=== PATIENT | male | born 1935 | race Two or more races ===

== ENCOUNTER 2017-01-26 11:18 | Emergency (ER) | payer MEDICARE, MEDICAID ==
[2017-01-26 12:27] VITALS: BP 144/78
== END 2017-01-26 12:37 | disposition home or self-care (01) ==
LOC: ER 11:18
DX: I10 Essential (primary) hypertension (principal); Z76.0 Encounter for issue of repeat prescription
CPT/HCPCS: 93005

== ENCOUNTER 2017-03-08 10:09 | Emergency (ER) | payer OTHER, MEDICAID ==
[2017-03-08 11:03] VITALS: BP 133/70
== END 2017-03-08 11:33 | disposition home or self-care (01) ==
LOC: ER 10:09
DX: S02.2XXA Fracture of nasal bones, initial encounter for closed fracture (principal); I10 Essential (primary) hypertension; W18.39XA Other fall on same level, initial encounter; Y93.89 Activity, other specified; Y92.89 Other specified places as the place of occurrence of the external cause; Y99.8 Other external cause status
CPT/HCPCS: 70160

== ENCOUNTER 2017-05-21 19:44 | Inpatient (IN) | payer OTHER, MEDICAID ==
[~2017-05-21] VITALS: Ht 162.6 cm; Wt 84.6 kg
[2017-05-21 21:29] LABS: Basophils # (auto) 0.1 uL; Basophils % (auto) 1.2 % (0.0-2.0); CONDITION Y; Eosinophils # (auto) 0.2 uL; Eosinophils % (auto) 3.5 % (0.0-7.0); Hematocrit 44.5 % (41.0-53.0); Lymphocytes # (auto) 1.7 uL; Lymphocytes % (auto) 26.1 % (10.0-50.0); Mean Corpuscular Hemoglobin 31.6 pg (28.0-32.0); Mean Corpuscular Hgb Conc. 33.8 g/dL (32.0-36.0); Mean Corpuscular Volume 93.7 fL (80.0-100.0); Mean Platelet Volume 8.6 fL (7.4-10.4); Monocytes # (auto) 0.6 uL; Monocytes % (auto) 9.7 % (0.0-12.0); Neutrophils # (auto) 3.9 uL; Neutrophils % (auto) 59.5 % (37.0-80.0); Platelet Count (auto) 223 10^3/uL (140-450); Red Cell Distribution Width 14.3 % (11.6-16.0); White Blood Cell 6.5 10^3/uL (4.4-10.8)
[2017-05-21 21:58] LABS: Albumin 3.7 g/dL (3.4-5.0); BUN/Creatinine Ratio 19.6; Calcium 8.8 mg/dL (8.5-10.1); Potassium 4.7 mmol/L (3.5-5.1)
[2017-05-21 22:01] LABS: Bilirubin, Total 0.5 mg/dL (0.2-1.0); Total Protein 7.8 g/dL (6.4-8.2)
[2017-05-21 23:48] LABS: Urine Bilirubin Negative (Negative); Urine Blood Negative /uL (Negative); Urine Color Yellow (Yellow); Urine Glucose Normal (Normal); Urine Ketone Negative (Negative); Urine Nitrite Negative (Negative); Urine RBC 1 /hpf (0 - 3); Urine Sperm PRESENT /hpf (None Seen); Urine Squamous Epithelial Cell FEW /hpf (<5); Urine Urobilinogen Normal (Negative); Urine pH 6.5 (5.0-8.0)
[2017-05-22] MEDS ORDERED: ACETAMINOPHEN 325 MG TAB PO PRN (07:00)
[2017-05-22] MEDS ORDERED: MORPHINE SULF INJ 2 MG/ML SYRINGE 1ML IV PRN (07:00)
[2017-05-22] MEDS ORDERED: ONDANSETRON HCL 4 MG/2 ML VIAL IV PRN (07:00)
[2017-05-22] MEDS ORDERED: HYDROcodone-ACET 5/325MG TAB PO PRN (07:00)
[2017-05-22] MEDS ORDERED: TEMAZEPAM 15 MG CAP PO PRN (07:00)
[2017-05-22] MEDS: SODIUM CHLORIDE 0.9% 1,000 ML IV SCH (07:30)
[2017-05-22] MEDS: metroNIDAZOLE 500MG/100ML 100 ML IV SCH ×3 (07:30→21:28)
[2017-05-22] MEDS ORDERED: PAR20T PO (08:38)
[2017-05-22] MEDS ORDERED: AML5T PO (08:38)
[2017-05-22] MEDS ORDERED: LOSA50TA6 PO (08:38)
[2017-05-22] MEDS: cefTRIAXone 1GM/50ML D5W 50 ML IV SCH (09:20)
[2017-05-22] MEDS: amLODIPine BESYLATE 5 MG TAB PO SCH (10:00)
[2017-05-22] MEDS: PANTOPRAZOLE 40 MG/10 ML VIAL IV SCH (10:00)
[2017-05-22 11:06] VITALS: BP 129/76
[2017-05-22 17:08] VITALS: BP 141/74
[2017-05-22 20:00] VITALS: BP 109/69
[2017-05-22 22:00] VITALS: BP 109/69
[2017-05-22] MEDS ORDERED: ATORVASTATIN 20 MG TAB PO SCH (22:00)
[2017-05-23] MEDS: SODIUM CHLORIDE 0.9% 1,000 ML IV SCH ×2 (01:12→16:16)
[2017-05-23 04:33] LABS: Basophils # (auto) 0 uL; Basophils % (auto) 0.8 % (0.0-2.0); CONDITION Y; Eosinophils # (auto) 0.2 uL; Eosinophils % (auto) 3.6 % (0.0-7.0); Hematocrit 41.9 % (41.0-53.0); Hemoglobin 14.1 g/dL (13.5-17.5); Lymphocytes # (auto) 1.2 uL; Lymphocytes % (auto) 22.9 % (10.0-50.0); Mean Corpuscular Hemoglobin 31.7 pg (28.0-32.0); Mean Corpuscular Hgb Conc. 33.7 g/dL (32.0-36.0); Mean Platelet Volume 9.2 fL (7.4-10.4); Monocytes # (auto) 0.5 uL; Monocytes % (auto) 10.3 % (0.0-12.0); Neutrophils # (auto) 3.1 uL; Neutrophils % (auto) 62.4 % (37.0-80.0); Platelet Count (auto) 203 10^3/uL (140-450); Red Cell Distribution Width 14.1 % (11.6-16.0)
[2017-05-23 04:54] LABS: Albumin 3.2 g/dL (3.4-5.0); BUN/Creatinine Ratio 12.2; Bilirubin, Total 0.9 mg/dL (0.2-1.0); Calcium 8.3 mg/dL (8.5-10.1); Potassium 3.8 mmol/L (3.5-5.1); Total Protein 6.8 g/dL (6.4-8.2)
[2017-05-23 05:00] VITALS: BP 124/68
[2017-05-23] MEDS: metroNIDAZOLE 500MG/100ML 100 ML IV SCH (05:19)
[2017-05-23 09:00] VITALS: BP 123/65
[2017-05-23] MEDS: PANTOPRAZOLE 40 MG/10 ML VIAL IV SCH (09:53)
[2017-05-23] MEDS: cefTRIAXone 1GM/50ML D5W 50 ML IV SCH (09:53)
[2017-05-23] MEDS: amLODIPine BESYLATE 5 MG TAB PO SCH (09:54)
[2017-05-23 12:30] VITALS: BP 107/54
[2017-05-23] MEDS ORDERED: DOCUSATE SOD 100 MG CAP PO PRN (15:15)
[2017-05-23] MEDS ORDERED: HYD25RS PR (15:40)
[2017-05-23 17:00] VITALS: BP 128/76
[2017-05-23 17:13] VITALS: BP 123/65
[2017-05-23 17:29] VITALS: BP 123/65
[2017-05-23] MEDS ORDERED: HYDROCORTISONE ACET 25 MG RECTAL SUPP PR SCH (22:00)
[2017-05-24] MEDS ORDERED: PANTOPRAZOLE 40 MG TAB PO SCH (10:00)
== END 2017-05-23 18:05 | disposition home or self-care (01) | DRG 446 ==
LOC: ER 19:44 → TELE 19:45 → EAST 05-22 09:42 → WEST WING 05-22 16:38
PROVIDERS: ADMIT Nurse Practitioner; ATTEND Internal Medicine
DX: K80.20 Calculus of gallbladder without cholecystitis without obstruction (principal); I12.9 Hypertensive chronic kidney disease with stage 1 through stage 4 chronic kidney disease, or unspecified chronic kidney disease; K64.4 Residual hemorrhoidal skin tags; N18.2 Chronic kidney disease, stage 2 (mild); K59.00 Constipation, unspecified; N40.0 Benign prostatic hyperplasia without lower urinary tract symptoms
CPT/HCPCS: 36415; 74000; 74176; 76705; 80053; 81001; 83690; 85025; 96365; C9113; J0696; J3490

== ENCOUNTER → 2019-07-20 | Outpatient (CLI) | payer MEDICARE, MEDICAID ==
[~2019-07-20] MED LIST: AML5T PO; HYD25RS PR; LOSA-69 PO; PAR20T PO
== END | disposition home or self-care (01) ==
LOC: Rad HDHVI 10:14
PROVIDERS: ATTEND Internal Medicine
DX: I82.492 Acute embolism and thrombosis of other specified deep vein of left lower extremity (principal); I10 Essential (primary) hypertension; Z90.49 Acquired absence of other specified parts of digestive tract
CPT/HCPCS: 93971

== ENCOUNTER → 2019-09-07 | Day surgery (SDC) | payer MEDICARE, MEDICAID ==
[2019-08-31 10:09] LABS: Basophils # (auto) 0 uL; Basophils % (auto) 0.8 % (0.0-2.0); Eosinophils # (auto) 0.2 uL; Eosinophils % (auto) 2.8 % (0.0-7.0); Hematocrit 44.8 % (41.0-53.0); Hemoglobin 15.7 g/dL (13.5-17.5); Lymphocytes # (auto) 1.3 uL; Lymphocytes % (auto) 23.9 % (10.0-50.0); Mean Corpuscular Hemoglobin 33.5 pg (28.0-32.0); Mean Corpuscular Hgb Conc. 35.1 g/dL (32.0-36.0); Mean Corpuscular Volume 95.4 fL (80.0-100.0); Monocytes # (auto) 0.5 uL; Monocytes % (auto) 9.1 % (0.0-12.0); Neutrophils # (auto) 3.5 uL; Neutrophils % (auto) 63.4 % (37.0-80.0); Platelet Count (auto) 157 10^3/uL (140-450); Red Cell Distribution Width 14.1 % (11.8-14.3); White Blood Cell 5.6 10^3/uL (4.4-10.8)
[2019-08-31 10:54] LABS: INR 1.09 (0.9-1.15); Partial Thromboplastin Time 27.7 sec (23.64-32.05)
[~2019-09-07] VITALS: Ht 167.6 cm; Wt 77.1 kg
[~2019-09-07] MED LIST changes: -AML5T PO; +FLUMAZENIL 0.1 MG/ML INJ 10ML MDV IV ONE; -HYD25RS PR; +LIDOCAINE VISCOUS 2% 15ML UD ONE; +LOSA-39 PO; -LOSA-69 PO; +NALOXONE HCL 0.4 MG/ML VIAL ONE; -PAR20T PO; +ROSU40TA PO; +SODIUM CHLORIDE LOCK 10 ML ONE; +TAMS0.4C36 PO; +VORT10TA PO; +diphenhdrAMINE HCL 50 MG/1 ML VL ONE
[2019-09-07] MEDS: MIDAZOLAM HCL 5 MG/ML-1ML VIAL ONE ×2 (09:16→09:20)
[2019-09-07] MEDS: fentaNYL CITRATE 100 MCG/2 ML VL ONE ×2 (09:16→09:20)
[2019-09-07 10:03] VITALS: BP 120/64
== END | disposition home or self-care (01) ==
LOC: GI 07:48
PROVIDERS: ATTEND Internal Medicine Gastroenterology
DX: K92.1 Melena (principal); K29.80 Duodenitis without bleeding; K29.50 Unspecified chronic gastritis without bleeding; K64.8 Other hemorrhoids; F41.9 Anxiety disorder, unspecified; F32.9 Major depressive disorder, single episode, unspecified; Z79.899 Other long term (current) drug therapy; Z98.42 Cataract extraction status, left eye
CPT/HCPCS: 36415; 43239; 85025; 85610; 85730; 88305; 88342; J2250; J3010; J7030; G0500

== ENCOUNTER 2019-09-29 12:27 | Emergency (ER) | payer MEDICARE, MEDICAID ==
[~2019-09-29] VITALS: Ht 165.1 cm; Wt 72.6 kg
[~2019-09-29 12:27] MED LIST changes: -FLUMAZENIL 0.1 MG/ML INJ 10ML MDV IV ONE; -LIDOCAINE VISCOUS 2% 15ML UD ONE; -NALOXONE HCL 0.4 MG/ML VIAL ONE; -SODIUM CHLORIDE LOCK 10 ML ONE; -diphenhdrAMINE HCL 50 MG/1 ML VL ONE
[2019-09-29 13:25] LABS: Basophils # (auto) 0.1 uL; Basophils % (auto) 0.9 % (0.0-2.0); Eosinophils # (auto) 0.1 uL; Eosinophils % (auto) 0.6 % (0.0-7.0); Lymphocytes # (auto) 0.9 uL; Lymphocytes % (auto) 10.4 % (10.0-50.0); Mean Corpuscular Hgb Conc. 34.1 g/dL (32.0-36.0); Mean Corpuscular Volume 96.9 fL (80.0-100.0); Monocytes # (auto) 0.7 uL; Monocytes % (auto) 8.5 % (0.0-12.0); Neutrophils % (auto) 79.6 % (37.0-80.0); Platelet Count (auto) 287 10^3/uL (140-450); Red Blood Cells 4.23 10^6/uL (4.5-5.90); Red Cell Distribution Width 14.8 % (11.8-14.3); White Blood Cell 8.8 10^3/uL (4.4-10.8)
[2019-09-29] MEDS ORDERED: HYDROcodone-ACET 10/325MG TAB PO ONE (13:30)
[2019-09-29 13:46] LABS: Albumin 3.5 g/dL (3.4-5.0); Calcium 8.9 mg/dL (8.5-10.1)
[2019-09-29 13:51] LABS: Bilirubin, Total 0.7 mg/dL (0.2-1.0); Total Protein 8.1 g/dL (6.4-8.2)
[2019-09-29 14:44] VITALS: BP 162/87
[2019-09-29 15:48] LABS: Urine Bacteria NONE SEEN /hpf (None Seen); Urine Blood Negative /uL (Negative); Urine Specific Gravity 1.008 (1.001-1.035); Urine WBC <1 /hpf (0 - 3)
== END 2019-09-29 17:00 | disposition home or self-care (01) ==
LOC: ER 12:27
DX: T83.091A Other mechanical complication of indwelling urethral catheter, initial encounter (principal); N40.0 Benign prostatic hyperplasia without lower urinary tract symptoms; E11.9 Type 2 diabetes mellitus without complications; E78.5 Hyperlipidemia, unspecified; I10 Essential (primary) hypertension; Z90.49 Acquired absence of other specified parts of digestive tract; Z87.440 Personal history of urinary (tract) infections; Z79.899 Other long term (current) drug therapy
CPT/HCPCS: 36415; 51702; 80053; 81001; 85025

== ENCOUNTER 2019-09-30 19:48 | Emergency (ER) | payer MEDICARE, MEDICAID ==
[~2019-09-30] VITALS: Ht 165.1 cm; Wt 72.6 kg
[2019-09-30 21:35] LABS: Basophils # (auto) 0.1 uL; Eosinophils # (auto) 0.1 uL; Eosinophils % (auto) 1.5 % (0.0-7.0); Hematocrit 38.4 % (41.0-53.0); Hemoglobin 13.3 g/dL (13.5-17.5); Lymphocytes % (auto) 13.6 % (10.0-50.0); Mean Corpuscular Hgb Conc. 34.6 g/dL (32.0-36.0); Mean Corpuscular Volume 95.6 fL (80.0-100.0); Monocytes # (auto) 0.7 uL; Monocytes % (auto) 10.1 % (0.0-12.0); Neutrophils # (auto) 5.3 uL; Neutrophils % (auto) 73.8 % (37.0-80.0); Nucleated Red Blood Cells % 0.1 %; Platelet Count (auto) 269 10^3/uL (140-450); Red Blood Cells 4.02 10^6/uL (4.5-5.90); Red Cell Distribution Width 14.9 % (11.8-14.3); White Blood Cell 7.1 10^3/uL (4.4-10.8)
[2019-09-30 21:51] LABS: Albumin 3.5 g/dL (3.4-5.0); Calcium 8.9 mg/dL (8.5-10.1); Magnesium 1.9 mg/dL (1.6-2.6); Potassium 4.2 mmol/L (3.5-5.1)
[2019-09-30 21:52] LABS: Urine Bacteria NONE SEEN /hpf (None Seen); Urine Blood Negative /uL (Negative); Urine Specific Gravity 1.006 (1.001-1.035); Urine WBC 1 /hpf (0 - 3)
[2019-09-30 21:55] LABS: Bilirubin, Total 0.8 mg/dL (0.2-1.0); Total Protein 7.6 g/dL (6.4-8.2)
[2019-10-01 04:09] VITALS: BP 151/79
== END 2019-10-01 04:10 | disposition home or self-care (01) ==
LOC: ER 19:48
DX: K80.20 Calculus of gallbladder without cholecystitis without obstruction (principal); E78.5 Hyperlipidemia, unspecified; E11.9 Type 2 diabetes mellitus without complications; I10 Essential (primary) hypertension; Z79.899 Other long term (current) drug therapy; Z87.440 Personal history of urinary (tract) infections; Z90.49 Acquired absence of other specified parts of digestive tract
CPT/HCPCS: 36415; 74176; 80053; 81001; 82150; 83690; 83735; 85025; 93005

== ENCOUNTER 2019-10-16 09:18 | Emergency (ER) | payer MEDICARE, MEDICAID ==
[~2019-10-16] VITALS: Ht 162.6 cm; Wt 73.5 kg
[2019-10-16 09:55] LABS: Basophils # (auto) 0 uL; Basophils % (auto) 0.9 % (0.0-2.0); Eosinophils # (auto) 0.1 uL; Eosinophils % (auto) 2.6 % (0.0-7.0); Hematocrit 43.6 % (41.0-53.0); Hemoglobin 15.1 g/dL (13.5-17.5); Lymphocytes # (auto) 0.9 uL; Lymphocytes % (auto) 17.5 % (10.0-50.0); Mean Corpuscular Hemoglobin 33.1 pg (28.0-32.0); Mean Corpuscular Hgb Conc. 34.6 g/dL (32.0-36.0); Mean Corpuscular Volume 95.4 fL (80.0-100.0); Monocytes # (auto) 0.4 uL; Monocytes % (auto) 8.2 % (0.0-12.0); Neutrophils # (auto) 3.7 uL; Neutrophils % (auto) 70.8 % (37.0-80.0); Nucleated Red Blood Cells % 0.2 %; Platelet Count (auto) 163 10^3/uL (140-450); Red Blood Cells 4.57 10^6/uL (4.5-5.90); Red Cell Distribution Width 14.2 % (11.8-14.3); White Blood Cell 5.2 10^3/uL (4.4-10.8)
[2019-10-16 10:02] LABS: Urine Bacteria NONE SEEN /hpf (None Seen); Urine Blood Negative /uL (Negative); Urine Specific Gravity 1.008 (1.001-1.035); Urine WBC 2 /hpf (0 - 3)
[2019-10-16 10:18] LABS: Albumin 3.8 g/dL (3.4-5.0); Calcium 9.1 mg/dL (8.5-10.1)
[2019-10-16 10:23] LABS: BUN/Creatinine Ratio 10.7; Bilirubin, Total 0.7 mg/dL (0.2-1.0); Total Protein 8.3 g/dL (6.4-8.2)
[2019-10-16 11:25] VITALS: BP 162/78
== END 2019-10-16 11:28 | disposition home or self-care (01) ==
LOC: ER 09:18
DX: R33.9 Retention of urine, unspecified (principal); E11.9 Type 2 diabetes mellitus without complications; I10 Essential (primary) hypertension; E78.5 Hyperlipidemia, unspecified; Z90.49 Acquired absence of other specified parts of digestive tract
CPT/HCPCS: 36415; 51702; 80053; 81001; 85025

== ENCOUNTER 2020-01-28 08:30 | Emergency (ER) | payer OTHER, MEDICAID ==
[~2020-01-28 08:30] MED LIST changes: +AMLO5TAB15 PO; +HYDR12.56 PO; +LOSA-69 PO; +OMEP20TA PO
[2020-01-28 09:10] LABS: Basophils # (auto) 0.1 10 ^3/uL (0-0.2); Eosinophils # (auto) 0.1 10 ^3/uL (0-0.8); Eosinophils % (auto) 1.6 % (0.0-7.0); Hematocrit 38.8 % (41.0-53.0); Hemoglobin 12.8 g/dL (13.5-17.5); Lymphocytes % (auto) 19.7 % (10.0-50.0); Mean Corpuscular Hemoglobin 28.2 pg (28.0-32.0); Mean Corpuscular Hgb Conc. 32.9 g/dL (32.0-36.0); Mean Corpuscular Volume 85.8 fL (80.0-100.0); Monocytes # (auto) 0.4 10 ^3/uL (0-1.3); Monocytes % (auto) 8.7 % (0.0-12.0); Neutrophils # (auto) 3.4 10 ^3/uL (1.6-8.6); Platelet Count (auto) 191 10^3/uL (140-450); Red Blood Cells 4.53 10^6/uL (4.5-5.90)
[2020-01-28 09:36] LABS: Blood Urea Nitrogen 26 mg/dL (7-18); Calcium 8.5 mg/dL (8.5-10.1); Chloride 106 mmol/L (98-107); Potassium 3.8 mmol/L (3.5-5.1); Sodium 138 mmol/L (136-145)
[2020-01-28 09:38] LABS: INR 1.09 (0.9-1.15); Partial Thromboplastin Time 29.3 sec (23.64-32.05)
[2020-01-28 09:44] LABS: Alanine Aminotransferase 18 U/L (16-61); Albumin 3.7 g/dL (3.4-5.0); Alkaline Phosphatase 85 U/L (45-117); Anion Gap 7 (5-15); Aspartate Aminotransferase 20 U/L (15-37); BUN/Creatinine Ratio 21.3; Bilirubin, Total 0.9 mg/dL (0.2-1.0); Carbon Dioxide 25 mmol/L (21-32); GFR African American 72 mL/min; GFR Non-African American 60 mL/min; Glucose 106 mg/dL (74-106); Total Protein 7.9 g/dL (6.4-8.2)
[2020-01-28 10:38] LABS: Urine Bacteria NONE SEEN /hpf (None Seen); Urine Blood Negative /uL (Negative); Urine Mucus FEW (None Seen); Urine Specific Gravity 1.019 (1.001-1.035); Urine WBC <1 /hpf (0 - 3)
[2020-01-28 11:17] VITALS: BP 139/71
[2020-05-09] MEDS ORDERED: AMOX500T3 PO (13:25)
[2020-05-09] MEDS ORDERED: PANT40TA2 PO (13:25)
[2020-05-24] MEDS ORDERED: ASCO10003 PO (13:18)
[2020-05-24] MEDS ORDERED: METH4PAK PO (13:18)
[2020-05-24] MEDS ORDERED: LEVO500T21 PO (13:18)
[2020-05-24] MEDS ORDERED: APIX5TAB PO (13:18)
[2020-05-24] MEDS ORDERED: ZINC220T6 PO (13:18)
[2020-05-24] MEDS ORDERED: AMOX500C2 PO (13:18)
[2020-05-27] MEDS ORDERED: FURO1TAB33 PO (11:45)
[2020-05-27] MEDS ORDERED: POTA1TAB61 PO (11:45)
== END 2020-01-28 11:42 | disposition home or self-care (01) ==
LOC: MERGE 08:30 → ER 08:30
DX: K59.00 Constipation, unspecified (principal); I10 Essential (primary) hypertension; E78.5 Hyperlipidemia, unspecified; Z90.49 Acquired absence of other specified parts of digestive tract
CPT/HCPCS: 36415; 74176; 80053; 81001; 84484; 85025; 85610; 85730; 93005

== ENCOUNTER → 2020-02-02 | Emergency (ER) | payer OTHER, MEDICAID ==
[~2020-02-02] MED LIST changes: -AMLO5TAB15 PO; -HYDR12.56 PO; -OMEP20TA PO
[2020-02-02 10:03] LABS: Urine WBC None Seen /hpf (0 - 3)
[2020-02-02 10:09] LABS: Urine Bacteria NONE SEEN /hpf (None Seen); Urine Blood Negative /uL (Negative); Urine Specific Gravity 1.005 (1.001-1.035)
[2020-02-02 10:13] LABS: Basophils # (auto) 0.1 10 ^3/uL (0-0.2); Eosinophils # (auto) 0 10 ^3/uL (0-0.8); Eosinophils % (auto) 0.5 % (0.0-7.0); Hematocrit 38.2 % (41.0-53.0); Hemoglobin 12.5 g/dL (13.5-17.5); Lymphocytes # (auto) 1.1 10 ^3/uL (0.4-5.4); Lymphocytes % (auto) 18.9 % (10.0-50.0); Mean Corpuscular Hemoglobin 27.8 pg (28.0-32.0); Mean Corpuscular Hgb Conc. 32.7 g/dL (32.0-36.0); Mean Corpuscular Volume 85.1 fL (80.0-100.0); Monocytes # (auto) 0.4 10 ^3/uL (0-1.3); Monocytes % (auto) 7.7 % (0.0-12.0); Neutrophils # (auto) 4.1 10 ^3/uL (1.6-8.6); Neutrophils % (auto) 71.9 % (37.0-80.0); Nucleated Red Blood Cells % 0.1 %; Platelet Count (auto) 197 10^3/uL (140-450); Red Blood Cells 4.48 10^6/uL (4.5-5.90); Red Cell Distribution Width 14.9 % (11.8-14.3); White Blood Cell 5.6 10^3/uL (4.4-10.8)
[2020-02-02 10:26] LABS: Albumin 3.8 g/dL (3.4-5.0); Calcium 8.7 mg/dL (8.5-10.1); Potassium 3.7 mmol/L (3.5-5.1)
[2020-02-02 10:29] LABS: BUN/Creatinine Ratio 9.3; Total Protein 7.9 g/dL (6.4-8.2)
[2020-02-02 11:53] VITALS: BP 147/68
== END | disposition home or self-care (01) ==
LOC: ER 09:32
DX: R10.31 Right lower quadrant pain (principal); F41.9 Anxiety disorder, unspecified; E11.9 Type 2 diabetes mellitus without complications; I10 Essential (primary) hypertension; E78.5 Hyperlipidemia, unspecified; Z90.49 Acquired absence of other specified parts of digestive tract; Z79.899 Other long term (current) drug therapy
CPT/HCPCS: 36415; 80053; 81001; 83690; 85025

== ENCOUNTER → 2020-03-03 | Outpatient (CLI) | payer OTHER, MEDICAID ==
[~2020-03-03] VITALS: Ht 1 cm; Wt 0.5 kg
[~2020-03-03] MED LIST changes: +ASPirin 81 mg TAB ONE; +VANCOMYCIN 1GM/250ML 250 ML IV ONE; +cefTRIAXone 1GM/50ML D5W 50 ML IV ONE; +cefTRIAXone SOD 1,000 MG VL ONE
[2020-03-03 13:40] LABS: Basophils # (auto) 0 10 ^3/uL (0-0.2); Basophils % (auto) 0.5 % (0.0-2.0); Eosinophils # (auto) 0.1 10 ^3/uL (0-0.8); Eosinophils % (auto) 0.8 % (0.0-7.0); Hematocrit 36.2 % (41.0-53.0); Hemoglobin 11.7 g/dL (13.5-17.5); Lymphocytes # (auto) 0.6 10 ^3/uL (0.4-5.4); Lymphocytes % (auto) 9.1 % (10.0-50.0); Mean Corpuscular Hemoglobin 27.5 pg (28.0-32.0); Mean Corpuscular Hgb Conc. 32.2 g/dL (32.0-36.0); Mean Corpuscular Volume 85.2 fL (80.0-100.0); Monocytes # (auto) 0.7 10 ^3/uL (0-1.3); Monocytes % (auto) 10.5 % (0.0-12.0); Neutrophils # (auto) 5.4 10 ^3/uL (1.6-8.6); Neutrophils % (auto) 79.1 % (37.0-80.0); Platelet Count (auto) 160 10^3/uL (140-450); Red Blood Cells 4.25 10^6/uL (4.5-5.90); Red Cell Distribution Width 16.5 % (11.8-14.3); White Blood Cell 6.8 10^3/uL (4.4-10.8)
[2020-03-03 13:59] LABS: Albumin 3.4 g/dL (3.4-5.0); Anion Gap 7 (5-15); Blood Urea Nitrogen 27 mg/dL (7-18); Calcium 8.1 mg/dL (8.5-10.1); Carbon Dioxide 22 mmol/L (21-32); Chloride 110 mmol/L (98-107); Glucose 100 mg/dL (74-106); Magnesium 2.5 mg/dL (1.6-2.6); Potassium 3.9 mmol/L (3.5-5.1); Sodium 139 mmol/L (136-145)
[2020-03-03 14:06] LABS: Alanine Aminotransferase 24 U/L (16-61); Alkaline Phosphatase 63 U/L (45-117); Aspartate Aminotransferase 15 U/L (15-37); BUN/Creatinine Ratio 23.3; Bilirubin, Total 0.5 mg/dL (0.2-1.0); GFR African American 77 mL/min; GFR Non-African American 63 mL/min
[2020-03-03 16:15] VITALS: BP 137/71
[2020-03-03] MEDS: ASPirin 81 mg TAB PO SCH ×2 (17:23→17:24)
== END | disposition home or self-care (01) ==
LOC: LAB 11:59
PROVIDERS: ATTEND Internal Medicine
DX: N39.0 Urinary tract infection, site not specified (principal); D64.9 Anemia, unspecified; I20.9 Angina pectoris, unspecified; E61.2 Magnesium deficiency; K57.90 Diverticulosis of intestine, part unspecified, without perforation or abscess without bleeding; I10 Essential (primary) hypertension; R07.89 Other chest pain; F41.9 Anxiety disorder, unspecified; E11.9 Type 2 diabetes mellitus without complications; E78.5 Hyperlipidemia, unspecified; Z79.899 Other long term (current) drug therapy; Z90.49 Acquired absence of other specified parts of digestive tract
CPT/HCPCS: 36415; 80053; 83735; 84484; 85025; 87086; 93005; 96365; 96367; G0463; J0696; J3370

== ENCOUNTER 2020-03-23 21:44 | Emergency (ER) | payer OTHER, MEDICAID ==
[~2020-03-23] VITALS: Ht 162.6 cm; Wt 65.8 kg
[~2020-03-23 21:44] MED LIST changes: +AMLO5TAB15 PO; -ASPirin 81 mg TAB ONE; +HYDR12.56 PO; +OMEP20TA PO; -VANCOMYCIN 1GM/250ML 250 ML IV ONE; -cefTRIAXone 1GM/50ML D5W 50 ML IV ONE; -cefTRIAXone SOD 1,000 MG VL ONE
[2020-03-24 01:06] LABS: Albumin 3.3 g/dL (3.4-5.0); BUN/Creatinine Ratio 16.8; Calcium 8.3 mg/dL (8.5-10.1); Potassium 3.6 mmol/L (3.5-5.1)
[2020-03-24 01:08] LABS: Bilirubin, Total 0.5 mg/dL (0.2-1.0)
[2020-03-24 01:18] LABS: Urine Bacteria FEW /hpf (None Seen); Urine Blood 1+ /uL (Negative); Urine Mucus FEW (None Seen); Urine Specific Gravity 1.012 (1.001-1.035); Urine WBC 1 /hpf (0 - 3)
[2020-03-24 01:59] LABS: Basophils # (auto) 0 10 ^3/uL (0-0.2); Basophils % (auto) 0.8 % (0.0-2.0); Eosinophils # (auto) 0.1 10 ^3/uL (0-0.8); Eosinophils % (auto) 1.7 % (0.0-7.0); Hematocrit 34.8 % (41.0-53.0); Hemoglobin 11.4 g/dL (13.5-17.5); Lymphocytes # (auto) 1.1 10 ^3/uL (0.4-5.4); Lymphocytes % (auto) 20.5 % (10.0-50.0); Mean Corpuscular Hemoglobin 27.5 pg (28.0-32.0); Mean Corpuscular Hgb Conc. 32.8 g/dL (32.0-36.0); Mean Corpuscular Volume 83.9 fL (80.0-100.0); Monocytes # (auto) 0.5 10 ^3/uL (0-1.3); Monocytes % (auto) 9.1 % (0.0-12.0); Neutrophils # (auto) 3.5 10 ^3/uL (1.6-8.6); Neutrophils % (auto) 67.9 % (37.0-80.0); Nucleated Red Blood Cells % 0.1 %; Platelet Count (auto) 191 10^3/uL (140-450); Red Blood Cells 4.15 10^6/uL (4.5-5.90); Red Cell Distribution Width 18.3 % (11.8-14.3); White Blood Cell 5.2 10^3/uL (4.4-10.8)
[2020-03-24] MEDS ORDERED: ONDANSETRON HCL 4 MG/2 ML VIAL IV ONE (02:15)
[2020-03-24] MEDS ORDERED: MORPHINE SULF INJ 2 MG/ML SYRINGE 1ML IV ONE (02:15)
[2020-03-24] MEDS ORDERED: SODIUM CHLORIDE 0.9% 500 ML IV ONE (03:15)
[2020-03-24 04:22] VITALS: BP 131/60
[2020-05-09] MEDS ORDERED: PANT40TA2 PO (13:25)
[2020-05-09] MEDS ORDERED: AMOX500T3 PO (13:25)
[2020-05-24] MEDS ORDERED: LEVO500T21 PO (13:18)
[2020-05-24] MEDS ORDERED: ASCO10003 PO (13:18)
[2020-05-24] MEDS ORDERED: METH4PAK PO (13:18)
[2020-05-24] MEDS ORDERED: ZINC220T6 PO (13:18)
[2020-05-24] MEDS ORDERED: APIX5TAB PO (13:18)
[2020-05-24] MEDS ORDERED: AMOX500C2 PO (13:18)
[2020-05-27] MEDS ORDERED: FURO1TAB33 PO (11:45)
[2020-05-27] MEDS ORDERED: POTA1TAB61 PO (11:45)
== END 2020-03-24 05:46 | disposition home or self-care (01) ==
LOC: ER 21:45 → MERGE 21:45 → ER 03-24 05:46
DX: R10.9 Unspecified abdominal pain (principal); G89.29 Other chronic pain; N40.0 Benign prostatic hyperplasia without lower urinary tract symptoms; K21.9 Gastro-esophageal reflux disease without esophagitis; E78.5 Hyperlipidemia, unspecified; I10 Essential (primary) hypertension; Z87.442 Personal history of urinary calculi; Z90.49 Acquired absence of other specified parts of digestive tract; Z90.89 Acquired absence of other organs; Z79.899 Other long term (current) drug therapy
CPT/HCPCS: 36415; 74176; 80053; 81001; 83605; 83880; 85025; 96374; 96375; 99284; J2270; J2405; J7040

== ENCOUNTER 2020-05-07 09:52 | Inpatient (IN) | payer OTHER, MEDICAID ==
[~2020-05-07] VITALS: Ht 165.1 cm; Wt 65.1 kg
[2020-05-07 11:26] LABS: Eosinophils # (auto) 0.1 10 ^3/uL (0-0.8); Hemoglobin 11.8 g/dL (13.5-17.5); Mean Corpuscular Hemoglobin 26.3 pg (28.0-32.0); Monocytes # (auto) 0.4 10 ^3/uL (0-1.3); Red Cell Distribution Width 17.7 % (11.8-14.3); White Blood Cell 5.2 10^3/uL (4.4-10.8)
[2020-05-07 11:28] LABS: Basophils # (auto) 0.1 10 ^3/uL (0-0.2); Basophils % (auto) 1.2 % (0.0-2.0); Eosinophils % (auto) 1.5 % (0.0-7.0); Hematocrit 37.7 % (41.0-53.0); Lymphocytes # (auto) 0.7 10 ^3/uL (0.4-5.4); Lymphocytes % (auto) 14.2 % (10.0-50.0); Mean Corpuscular Hgb Conc. 31.4 g/dL (32.0-36.0); Mean Corpuscular Volume 83.7 fL (80.0-100.0); Monocytes % (auto) 8.5 % (0.0-12.0); Neutrophils # (auto) 3.9 10 ^3/uL (1.6-8.6); Neutrophils % (auto) 74.6 % (37.0-80.0); Platelet Count (auto) 206 10^3/uL (140-450)
[2020-05-07 11:31] LABS: Urine Bacteria FEW /hpf (None Seen); Urine Blood TRACE /uL (Negative); Urine Mucus FEW (None Seen); Urine Specific Gravity 1.019 (1.001-1.035); Urine WBC 3 /hpf (0 - 3)
[2020-05-07 11:55] LABS: Albumin 3.3 g/dL (3.4-5.0); Anion Gap 5 (5-15); Blood Urea Nitrogen 20 mg/dL (7-18); Calcium 8.6 mg/dL (8.5-10.1); Carbon Dioxide 27 mmol/L (21-32); Chloride 110 mmol/L (98-107); Glucose 115 mg/dL (74-106); Potassium 3.7 mmol/L (3.5-5.1); Sodium 142 mmol/L (136-145)
[2020-05-07 12:04] LABS: Alanine Aminotransferase 19 U/L (16-61); Alkaline Phosphatase 83 U/L (45-117); Aspartate Aminotransferase 16 U/L (15-37); BUN/Creatinine Ratio 18.3; Bilirubin, Total 0.5 mg/dL (0.2-1.0); GFR African American 82 mL/min; GFR Non-African American 68 mL/min; Total Protein 7.3 g/dL (6.4-8.2)
[2020-05-07] MEDS ORDERED: IOHEXOL 350 MG/ML 100ML IJ ONE (12:26)
[2020-05-07] MEDS ORDERED: MORPHINE SULF INJ 2 MG/ML SYRINGE 1ML IV PRN ×2 (18:30→21:15)
[2020-05-07] MEDS ORDERED: NITROGLYCERIN 0.4 MG SL TAB SL PRN ×2 (18:30→21:15)
[2020-05-07] MEDS ORDERED: hydrALAZINE HCL 20 MG/ML VL IV ONE (18:45)
--- NOTE | 2020-05-07 20:10 | NUR ---
Telemetry admit from ER Patient admitted to Telemetry unit after SBAR received. Patient oriented to primary RN, unit, room, bed, and unit policies regarding patient care and visiting hours. Patient now on continuous telemetry monitoring, tele box #9 and telemetry reading on arrival to unit is 74 BPM. Patient on room air, no s/s of SOB or distress, respirations even and unlabored, patient denies pain. Bed in lowest locked position with two side rails raised, call jansen within reach, and bed alarm activated, patient on Novel respiratory isolation, weighed by bed scale and encouraged to call if they need something. Instructed on POC, All questions and concerns addressed, patient verbalized understanding. Patient has leg bag/sarkar that came from home, patent and hung below the bladder and draining to gravity. Will continue to monitor Q1 hr and PRN.
[2020-05-07] MEDS ORDERED: DOCUSATE SOD 100 MG CAP PO PRN (21:15)
[2020-05-07] MEDS ORDERED: ENOXAPARIN SOD 100 MG/1 ML SYRINGE SC ONE (21:15)
[2020-05-07] MEDS ORDERED: ONDANSETRON HCL 4 MG/2 ML VIAL IV PRN (21:15)
[2020-05-07] MEDS ORDERED: ALUM & MAG HYDROX-SIMETH LIQ(MAALOX) 30 ML PO PRN (21:15)
[2020-05-07] MEDS ORDERED: hydrALAZINE HCL 20 MG/ML VL IV PRN (21:15)
[2020-05-07] MEDS ORDERED: HYDROcodone-ACET 5/325MG TAB PO PRN (21:15)
[2020-05-07] MEDS ORDERED: ACETAMINOPHEN 325 MG TAB PO PRN (21:15)
[2020-05-07] MEDS ORDERED: FUROSEMIDE 20 MG/2 ML VIAL IV ONE (21:15)
[2020-05-07] MEDS ORDERED: LORazepam 0.5 MG TAB PO PRN (21:15)
[2020-05-07] MEDS ORDERED: FAMOTIDINE 20 MG TAB PO ONE (21:30)
[2020-05-07] MEDS ORDERED: LOSARTAN POTASSIUM 25 MG TAB PO ONE (21:30)
[2020-05-07 21:40] LABS: Alcohol, Urine < 3.0 mg/dL (0-10); Amphetamine Screen, Urine NEGATIVE (NEGATIVE); Barbiturate Scree,Urine NEGATIVE (NEGATIVE); Benzodiazephine Screen, Urine NEGATIVE (NEGATIVE); Cannabinoid Screen, Urine NEGATIVE (NEGATIVE); Cocaine Screen, Urine NEGATIVE (NEGATIVE); Opiate Scree,Urine NEGATIVE (NEGATIVE); Phencyclidine Screen, Urine NEGATIVE (NEGATIVE)
[2020-05-07 22:00] VITALS: BP 149/85
[2020-05-07] MEDS: DICYCLOMINE HCL 10 MG CAP PO SCH (22:03)
[2020-05-07] MEDS: ATORVASTATIN 20 MG TAB PO SCH (22:04)
[2020-05-07] MEDS: FAMOTIDINE 20 MG TAB PO SCH (22:04)
--- NOTE | 2020-05-07 22:45 | NUR ---
Care endorsed to Brayan FRANCIS, patient transferred out of COVID unit to room 220-A via wheelchair without incident.
--- NOTE | 2020-05-07 22:55 | NUR ---
TRANSFER FROM [facility] Received patient from [facility] after receiving SBAR. The patient tolerated transfer well. Vitals upon arrival are: Temp 98.6, BP 131/85, HR 58, RR 20, SPO 99%, 0/10 pain, 65.3 KG. Patient has been oriented to room and unit. He currently has no complaints. Will continue to monitor the patient's status.
[2020-05-08 00:26] LABS: INR 1.04 (0.9-1.15); Partial Thromboplastin Time 32.9 sec (23.0-31.2)
[2020-05-08 00:57] LABS: Cholesterol 194 mg/dL (< 200)
[2020-05-08 01:22] LABS: HDL Cholesterol 73 mg/dL (40-59); LDL Cholesterol 109 mg/dL (< 100); Triglycerides 97 mg/dL (< 150)
[2020-05-08 05:00] VITALS: BP 133/81
--- NOTE | 2020-05-08 05:00 | NUR ---
HOSPITALIST PAGED The patient heart rate dropped down to 38 but increased back to mid-40s. Upon assessment, the patient is asymptomatic. Denies any light headiness or dizziness. Vitals are stable. Hospitalist paged.
[2020-05-08] MEDS: DICYCLOMINE HCL 10 MG CAP PO SCH ×4 (06:00→21:56)
[2020-05-08] MEDS: FUROSEMIDE 20 MG/2 ML VIAL IV SCH ×2 (06:00→18:07)
--- NOTE | 2020-05-08 06:00 | NUR ---
HOSPITALIST PAGED Re-paged the hospitalist. Awaiting call back.
[2020-05-08 06:05] LABS: Basophils # (auto) 0.1 10 ^3/uL (0-0.2); Eosinophils # (auto) 0.3 10 ^3/uL (0-0.8); Hematocrit 38.7 % (41.0-53.0); Hemoglobin 12.5 g/dL (13.5-17.5); Lymphocytes # (auto) 1.3 10 ^3/uL (0.4-5.4); Monocytes # (auto) 0.7 10 ^3/uL (0-1.3)
[2020-05-08 06:06] LABS: Basophils % (auto) 0.8 % (0.0-2.0); Eosinophils % (auto) 3.5 % (0.0-7.0); Lymphocytes % (auto) 17.1 % (10.0-50.0); Mean Corpuscular Hemoglobin 26.8 pg (28.0-32.0); Mean Corpuscular Hgb Conc. 32.3 g/dL (32.0-36.0); Mean Corpuscular Volume 82.8 fL (80.0-100.0); Monocytes % (auto) 8.5 % (0.0-12.0); Neutrophils # (auto) 5.5 10 ^3/uL (1.6-8.6); Neutrophils % (auto) 70.1 % (37.0-80.0); Platelet Count (auto) 238 10^3/uL (140-450); Red Blood Cells 4.68 10^6/uL (4.5-5.90); White Blood Cell 7.8 10^3/uL (4.4-10.8)
[2020-05-08 06:16] LABS: INR 1.04 (0.9-1.15); Partial Thromboplastin Time 31.5 sec (23.0-31.2)
[2020-05-08 06:26] LABS: Potassium 3.6 mmol/L (3.5-5.1)
[2020-05-08 06:47] LABS: Albumin 3.4 g/dL (3.4-5.0); BUN/Creatinine Ratio 18.3; Bilirubin, Total 0.6 mg/dL (0.2-1.0); Calcium 8.6 mg/dL (8.5-10.1); Magnesium 2.4 mg/dL (1.6-2.6); Total Protein 7.5 g/dL (6.4-8.2)
--- NOTE | 2020-05-08 07:30 | NUR ---
Opening Shift Note Assumed care of patient, awake and alert. No S/S of distress/SOB or pain. Instructed on POC and to call for assist PRN, will continue to monitor for changes Q1hr and PRN.
[2020-05-08 08:00] VITALS: BP 113/76
[2020-05-08 09:00] VITALS: BP 113/76
[2020-05-08] MEDS ORDERED: ENOXAPARIN SOD 100 MG/1 ML SYRINGE SC SCH (09:00)
[2020-05-08] MEDS: cefTRIAXone 1GM/50ML D5W 50 ML IV SCH (09:42)
[2020-05-08] MEDS: LOSARTAN POTASSIUM 50 MG TAB PO SCH (09:43)
[2020-05-08] MEDS: amLODIPine BESYLATE 5 MG TAB PO SCH (09:43)
[2020-05-08] MEDS: FLUoxetine HCL 20 MG CAP PO SCH (09:44)
[2020-05-08] MEDS: FAMOTIDINE 20 MG TAB PO SCH (09:44)
[2020-05-08] MEDS: FINASTERIDE 5 MG TAB PO SCH (09:44)
[2020-05-08] MEDS ORDERED: ASPirin 81 mg TAB PO SCH (10:00)
[2020-05-08] MEDS: AZITHROMYCIN 500MG/ 250ML 250 ML IV SCH (10:32)
[2020-05-08] MEDS ORDERED: APIXABAN 5 MG TAB PO SCH ×2 (12:15→22:00)
[2020-05-08 13:00] VITALS: BP 142/76
[2020-05-08 17:00] VITALS: BP 143/76
[2020-05-08] MEDS ORDERED: TAMSULOSIN HYDROCHLORIDE 0.4 MG CAP PO SCH (18:00)
--- NOTE | 2020-05-08 18:22 | NUR ---
CLARIFIED ELIQUIS ORDER WITH DR. CALIX. HE DISCUSSED THIS ORDER WITH THE ENERGY PROJECT ENGINEER DR. JAVIER AND IT IS THE PLAN THEY DECIDED ON.
--- NOTE | 2020-05-08 19:35 | NUR ---
Opening Shift Note Assumed care of patient, awake and alert. No S/S of distress/SOB or pain. Bed is locked in lowest position with call light within reach. Instructed on POC and to call for assist PRN, will continue to monitor for changes Q1hr and PRN.
[2020-05-08] MEDS: APIXABAN 5 MG TAB PO SCH (21:56)
[2020-05-08] MEDS: ATORVASTATIN 20 MG TAB PO SCH (21:56)
[2020-05-08 22:17] VITALS: BP 124/58
--- NOTE | 2020-05-09 00:15 | NUR ---
IV REMOVED The patient accidently pulled out his hand IV. Catheter has been fully removed. Will continue to monitor the patient's status.
[2020-05-09 04:52] VITALS: BP 114/69
[2020-05-09] MEDS: DICYCLOMINE HCL 10 MG CAP PO SCH ×2 (06:00→15:46)
[2020-05-09] MEDS: FUROSEMIDE 20 MG/2 ML VIAL IV SCH (06:00)
[2020-05-09 07:18] LABS: Basophils # (auto) 0 10 ^3/uL (0-0.2); Basophils % (auto) 0.8 % (0.0-2.0); Eosinophils # (auto) 0.1 10 ^3/uL (0-0.8); Lymphocytes # (auto) 0.7 10 ^3/uL (0.4-5.4); Monocytes # (auto) 0.7 10 ^3/uL (0-1.3); Neutrophils % (auto) 71.5 % (37.0-80.0)
[2020-05-09 07:19] LABS: Eosinophils % (auto) 2.5 % (0.0-7.0); Hematocrit 36.7 % (41.0-53.0); Lymphocytes % (auto) 12.5 % (10.0-50.0); Mean Corpuscular Hemoglobin 26.9 pg (28.0-32.0); Mean Corpuscular Hgb Conc. 32.6 g/dL (32.0-36.0); Mean Corpuscular Volume 82.5 fL (80.0-100.0); Monocytes % (auto) 12.7 % (0.0-12.0); Platelet Count (auto) 219 10^3/uL (140-450); Red Blood Cells 4.45 10^6/uL (4.5-5.90); Red Cell Distribution Width 17.4 % (11.8-14.3); White Blood Cell 5.5 10^3/uL (4.4-10.8)
[2020-05-09 07:34] LABS: Albumin 3.2 g/dL (3.4-5.0); Calcium 8.4 mg/dL (8.5-10.1); Magnesium 2.2 mg/dL (1.6-2.6); Potassium 3.3 mmol/L (3.5-5.1)
[2020-05-09 07:35] LABS: INR 1.09 (0.9-1.15)
[2020-05-09 07:38] LABS: BUN/Creatinine Ratio 16.8; Bilirubin, Total 0.8 mg/dL (0.2-1.0); Phosphorus 3.8 mg/dL (2.5-4.90); Total Protein 6.8 g/dL (6.4-8.2)
[2020-05-09 08:00] VITALS: BP 118/57
[2020-05-09 09:20] VITALS: BP 118/57
[2020-05-09] MEDS: FINASTERIDE 5 MG TAB PO SCH (09:37)
[2020-05-09] MEDS: cefTRIAXone 1GM/50ML D5W 50 ML IV SCH (09:37)
[2020-05-09] MEDS: AZITHROMYCIN 500MG/ 250ML 250 ML IV SCH (09:37)
[2020-05-09] MEDS: FLUoxetine HCL 20 MG CAP PO SCH (09:37)
[2020-05-09] MEDS: LOSARTAN POTASSIUM 50 MG TAB PO SCH (09:38)
[2020-05-09] MEDS: APIXABAN 5 MG TAB PO SCH (09:38)
[2020-05-09] MEDS: FAMOTIDINE 20 MG TAB PO SCH (09:38)
[2020-05-09] MEDS: amLODIPine BESYLATE 5 MG TAB PO SCH (09:38)
--- NOTE | 2020-05-09 10:40 | NUR ---
AMBULATION PT AMBULATING TO BATHROOM, GAIT STEADY, NO DISTRESS NOTED, CONT CARE
[2020-05-09 13:00] VITALS: BP 121/78
[2020-05-09] MEDS ORDERED: POTASSIUM CHL 20 Meq TABLET PO ONE (13:15)
[2020-05-09] MEDS ORDERED: PANT40TA2 PO ×2 (13:25)
[2020-05-09] MEDS ORDERED: AMOX500T3 PO ×2 (13:25)
--- NOTE | 2020-05-09 15:35 | NUR ---
assessment re: ss consult no food Patient is a 85 year old Luxembourgish speaking male who is alert and oriented. Sheila SW1 translated for us. Prior to admission patient lived home with a roommate and was independent. Per patient he will return home to his previous living arrangements. Patients PCP is Dr Zamora at the [facility]. I informed patient of his ss consult for not having enough food. Patient stated that he gets 750.00 from [employer] and pays 450.00 for rent. Patient stated that he eats out a lot and spends his money on eating out. Patient informed me he has family in the [place] area, but does not want anything to do with them. I have provided patient with resources for food [place] in the area and also [facility] investment counselor for free rides for seniors. Patient feel safe returning home on discharge. Patient has a home health order that will be satisfied by our case management along with [place] case aide. Addendum: 05/09/20 at 1542 by Aniya FORTUNE Amended: Links added.
--- NOTE | 2020-05-09 17:15 | NUR ---
[facility] 10 DAYS OF [facility] WILL DELIVER THE REST AT HOME, ADDRESS VERIFIED WITH PT
--- NOTE | 2020-05-09 17:47 | NUR ---
DISCHARGE Discharge instructions given as ordered. Encourage to follow up with PMD as instructed. Patient will follow up with [facility] for home health and sarkar care. All questions and concerns addressed. Patient verbalized understanding. Medication reconciliation form completed and copy given to patient. IV removed with catheter intact, pressure dressing applied, sarkar catheter remained inserted and will be managed by [facility] . Telemetry unit returned to ICU. Patient taken to ER lobby to wait for his friend that is on his way to drive his vehicle and him home, taken via wheelchair with all personal belongings, accompanied by staff member. No distress noted at time of departure.
[2020-05-15] MEDS ORDERED: APIXABAN 5 MG TAB PO SCH (22:00)
== END 2020-05-09 17:38 | disposition home health service (06) | DRG 176 ==
LOC: ER 09:52 → EDUNIT# 09:52 → TELE-EAST 09:53 → TELE-CENTR 22:59
PROVIDERS: ADMIT Hospitalist; ATTEND Internal Medicine
DX: I26.99 Other pulmonary embolism without acute cor pulmonale (principal); M48.54XA Collapsed vertebra, not elsewhere classified, thoracic region, initial encounter for fracture; I16.9 Hypertensive crisis, unspecified; N39.0 Urinary tract infection, site not specified; E44.1 Mild protein-calorie malnutrition; I11.0 Hypertensive heart disease with heart failure; K57.90 Diverticulosis of intestine, part unspecified, without perforation or abscess without bleeding; F17.200 Nicotine dependence, unspecified, uncomplicated; R00.1 Bradycardia, unspecified; I25.10 Atherosclerotic heart disease of native coronary artery without angina pectoris; Z20.828 Contact with and (suspected) exposure to other viral communicable diseases; E78.5 Hyperlipidemia, unspecified; E87.6 Hypokalemia; M47.9 Spondylosis, unspecified; F32.9 Major depressive disorder, single episode, unspecified; F41.9 Anxiety disorder, unspecified; J44.9 Chronic obstructive pulmonary disease, unspecified; D63.8 Anemia in other chronic diseases classified elsewhere; Z68.24 Body mass index [BMI] 24.0-24.9, adult; I50.9 Heart failure, unspecified; B95.2 Enterococcus as the cause of diseases classified elsewhere; N32.0 Bladder-neck obstruction; N40.0 Benign prostatic hyperplasia without lower urinary tract symptoms
CPT/HCPCS: 36415; 71045; 71275; 80053; 80061; 80307; 81001; 83036; 83605; 83735; 84100; 84484; 85025; 85379; 85610; 85730; 87040; 87086; 87088; 87186; 93005; 93306; 93970; 96374; 96375; G0378; J0696

== ENCOUNTER 2020-05-21 08:24 | Inpatient (IN) | payer OTHER, MEDICAID ==
[~2020-05-21] VITALS: Ht 152.4 cm; Wt 74.5 kg
[~2020-05-21 08:24] MED LIST changes: +AMOX500T3 PO; +PANT40TA2 PO
[2020-05-21 09:43] LABS: Urine Bacteria FEW /hpf (None Seen); Urine Blood 1+ /uL (Negative); Urine Mucus FEW (None Seen); Urine Specific Gravity 1.012 (1.001-1.035); Urine WBC 8 /hpf (0 - 3)
[2020-05-21] MEDS ORDERED: SODIUM CHLORIDE 0.9% 1,000 ML IV ONE (09:48)
[2020-05-21 10:20] LABS: Basophils # (auto) 0 10 ^3/uL (0-0.2); Basophils % (auto) 0.2 % (0.0-2.0); Eosinophils # (auto) 0 10 ^3/uL (0-0.8); Eosinophils % (auto) 0.1 % (0.0-7.0); Hematocrit 33.1 % (41.0-53.0); Hemoglobin 10.7 g/dL (13.5-17.5); Lymphocytes # (auto) 0.4 10 ^3/uL (0.4-5.4); Mean Corpuscular Hemoglobin 26.3 pg (28.0-32.0); Mean Corpuscular Hgb Conc. 32.3 g/dL (32.0-36.0); Mean Corpuscular Volume 81.2 fL (80.0-100.0); Monocytes # (auto) 0.4 10 ^3/uL (0-1.3); Monocytes % (auto) 9.8 % (0.0-12.0); Neutrophils # (auto) 2.9 10 ^3/uL (1.6-8.6); Neutrophils % (auto) 79.9 % (37.0-80.0); Platelet Count (auto) 163 10^3/uL (140-450); Red Blood Cells 4.08 10^6/uL (4.5-5.90); White Blood Cell 3.7 10^3/uL (4.4-10.8)
[2020-05-21 10:41] LABS: Albumin 2.9 g/dL (3.4-5.0); Calcium 7.8 mg/dL (8.5-10.1); Potassium 3.9 mmol/L (3.5-5.1)
[2020-05-21 10:46] LABS: BUN/Creatinine Ratio 14.4; Bilirubin, Total 0.6 mg/dL (0.2-1.0); Total Protein 6.6 g/dL (6.4-8.2)
[2020-05-21 11:03] LABS: CRP High Sensitivity 6.36 mg/dL (< 0.3)
[2020-05-21] MEDS ORDERED: cefTRIAXone 1GM/50ML D5W 50 ML IV ONE (12:00)
[2020-05-21] MEDS ORDERED: SODIUM CHLORIDE 0.9% 1,000 ML IV SCH (12:40)
[2020-05-21] MEDS ORDERED: ONDANSETRON HCL 4 MG/2 ML VIAL IV PRN (12:45)
[2020-05-21] MEDS ORDERED: ACETAMINOPHEN 325 MG TAB PO PRN (12:45)
[2020-05-21] MEDS ORDERED: MORPHINE SULF INJ 2 MG/ML SYRINGE 1ML IV PRN ×2 (12:45)
[2020-05-21] MEDS ORDERED: ACETAMINOPHEN 500 MG TAB PO PRN (12:45)
[2020-05-21] MEDS ORDERED: ALUM & MAG HYDROX-SIMETH LIQ(MAALOX) 30 ML PO PRN (12:45)
[2020-05-21] MEDS ORDERED: NITROGLYCERIN 0.4 MG SL TAB SL PRN (12:45)
[2020-05-21] MEDS ORDERED: HYDROcodone-ACET 5/325MG TAB PO PRN (12:45)
[2020-05-21] MEDS ORDERED: DOCUSATE SOD 100 MG CAP PO PRN (12:45)
[2020-05-21 13:37] LABS: Alcohol, Urine < 3.0 mg/dL (0-10); Amphetamine Screen, Urine NEGATIVE (NEGATIVE); Barbiturate Scree,Urine NEGATIVE (NEGATIVE); Benzodiazephine Screen, Urine NEGATIVE (NEGATIVE); Cannabinoid Screen, Urine NEGATIVE (NEGATIVE); Cocaine Screen, Urine NEGATIVE (NEGATIVE); Opiate Scree,Urine NEGATIVE (NEGATIVE); Phencyclidine Screen, Urine NEGATIVE (NEGATIVE)
[2020-05-21 13:39] LABS: Cholesterol 132 mg/dL (< 200); HDL Cholesterol 57 mg/dL (40-59); LDL Cholesterol 67 mg/dL (< 100); Triglycerides 109 mg/dL (< 150)
[2020-05-21] MEDS ORDERED: hydrALAZINE HCL 20 MG/ML VL IV PRN (14:00)
[2020-05-21] MEDS: ALBUTEROL SULF HFA 90MCG INH 200DOSE IN SCH ×3 (14:20→22:00)
[2020-05-21] MEDS: FUROSEMIDE 20 MG/2 ML VIAL IV SCH (19:07)
[2020-05-21] MEDS: TAMSULOSIN HYDROCHLORIDE 0.4 MG CAP PO SCH (19:08)
--- NOTE | 2020-05-21 21:00 | NUR ---
Telemetry admit from [facility] admitted to Telemetry unit after SBAR received. Patient oriented to Latoya Love RN primary RN, unit, room, bed, and unit policies regarding patient care and visiting hours. Patient now on continuous telemetry monitoring, tele box #9. Patient placed on bedside oxygen, weighed by bedscale and encouraged to call if they need something. All questions and concerns addressed, patient verbalized understanding. Bed is in lowest locked position with bed rails up x2 and call light is within reach of the patient.
[2020-05-21 22:00] VITALS: BP 126/66
[2020-05-21] MEDS: APIXABAN 5 MG TAB PO SCH (22:00)
[2020-05-21] MEDS ORDERED: DOXYCYCLINE 100MG/250ML 250 ML IV SCH (22:00)
[2020-05-21] MEDS: BUDESONIDE (INHALATION) 180 MCG IH IN SCH (22:00)
[2020-05-21] MEDS: ATORVASTATIN 20 MG TAB PO SCH (22:00)
[2020-05-21] MEDS: LORazepam 0.5 MG TAB PO PRN (22:31)
--- NOTE | 2020-05-21 22:42 | NUR ---
Patient refused evening meds: Patient refused evening medications despite education in Occitan. Educated the patient about the medications and its purpose, patient refuses insisting that he only takes the medications he takes at home but asks for anxiety medication. Patient still refuses but request medication for anxiety.
[2020-05-22] MEDS ORDERED: PNEUMOCOCCAL VACC POLYS 25 MCG/0.5 ML VIAL IM ONE (01:00)
--- NOTE | 2020-05-22 01:00 | NUR ---
Unable to reconcile medications: Patient does not have medication list or home medications with him. States that he will get it sometime today in the morning as they are in his car. Will notify day shift nurse.
[2020-05-22 03:46] VITALS: BP 126/66
[2020-05-22 05:00] VITALS: BP 117/73
[2020-05-22 05:37] LABS: Basophils # (auto) 0 10 ^3/uL (0-0.2); Eosinophils # (auto) 0 10 ^3/uL (0-0.8); Lymphocytes # (auto) 0.5 10 ^3/uL (0.4-5.4); Mean Corpuscular Hemoglobin 26.9 pg (28.0-32.0); Monocytes # (auto) 0.3 10 ^3/uL (0-1.3); Red Cell Distribution Width 17.2 % (11.8-14.3)
[2020-05-22 05:40] LABS: Basophils % (auto) 0.2 % (0.0-2.0); Eosinophils % (auto) 0.1 % (0.0-7.0); Hemoglobin 11.2 g/dL (13.5-17.5); Lymphocytes % (auto) 12.5 % (10.0-50.0); Mean Corpuscular Volume 81.7 fL (80.0-100.0); Monocytes % (auto) 8.6 % (0.0-12.0); Neutrophils % (auto) 78.6 % (37.0-80.0); Platelet Count (auto) 167 10^3/uL (140-450); Red Blood Cells 4.17 10^6/uL (4.5-5.90); White Blood Cell 3.8 10^3/uL (4.4-10.8)
[2020-05-22] MEDS: FUROSEMIDE 20 MG/2 ML VIAL IV SCH ×2 (05:43→18:38)
--- NOTE | 2020-05-22 05:52 | NUR ---
Elevated temperature: Patient has elevated temperature of 100.5. Implemented cooling measures, cooling room down and providing patient with only a sheet. Will medicate with PRN Tylenol and reassess.
[2020-05-22] MEDS: BUDESONIDE (INHALATION) 180 MCG IH IN SCH ×2 (06:16→22:42)
[2020-05-22] MEDS: ALBUTEROL SULF HFA 90MCG INH 200DOSE IN SCH ×3 (06:16→22:42)
[2020-05-22 06:28] LABS: Albumin 2.8 g/dL (3.4-5.0); BUN/Creatinine Ratio 13.9; Calcium 8.1 mg/dL (8.5-10.1); Potassium 4.2 mmol/L (3.5-5.1)
[2020-05-22 06:31] LABS: Bilirubin, Total 0.5 mg/dL (0.2-1.0); Total Protein 6.7 g/dL (6.4-8.2)
--- NOTE | 2020-05-22 06:45 | NUR ---
Temperature reassessed: Temperature was 99.5. Continue cooling measures. Will notify day shift RN, patient tolerated well.
--- NOTE | 2020-05-22 06:50 | NUR ---
Called pharmacy regarding medication: Called pharmacy regarding Remdesivir communication order as requested. Pharmacy stated that it needs to be approved by another MD before it can be given. Will notify Day shift RN.
--- NOTE | 2020-05-22 07:30 | NUR ---
Opening Shift Note RECEIVED REPORT FROM NOC RN. Assumed care of patient, awake and alert. PATIENT ON OXYGEN AT 2 LPM VIA NASAL CANNULA WITH no S/S of distress/SOB or pain. BED IN LOWEST, LOCKED POSITION WITH SIDERAILS UP x2 AND CALL LIGHT WITHIN REACH. Instructed on POC and to call for assist PRN, will continue to monitor for changes Q1hr and PRN.
[2020-05-22 08:49] VITALS: BP 119/72
[2020-05-22] MEDS: cefTRIAXone 1GM/50ML D5W 50 ML IV SCH (08:58)
[2020-05-22] MEDS ORDERED: ENOXAPARIN SOD 40 MG/0.4 ML SYRINGE SC SCH (10:00)
[2020-05-22] MEDS: ASCORBIC ACID 1,000 MG TAB PO SCH (10:37)
[2020-05-22] MEDS: ZINC SULFATE 220mg CAP or TAB PO SCH (10:37)
[2020-05-22] MEDS: LOSARTAN POTASSIUM 50 MG TAB PO SCH (10:37)
[2020-05-22] MEDS: APIXABAN 5 MG TAB PO SCH ×2 (10:37→21:55)
[2020-05-22] MEDS: PANTOPRAZOLE 40 MG TAB PO SCH (10:38)
[2020-05-22] MEDS: CHOLECALCIFEROL (VITD3) 2,000 UNIT CAP PO SCH (10:38)
[2020-05-22] MEDS: AZITHROMYCIN 500MG/ 250ML 250 ML IV SCH (10:38)
[2020-05-22] MEDS: DexAMETHasone SOD PHOS 10MG/1ML VIAL INJ IV SCH (10:38)
--- NOTE | 2020-05-22 12:08 | NUR ---
DR. ALVAREZ AT BEDSIDE. ADVISED OF REMDESIVIR ORDERED BY DR. PRATHER. ADVISED DR. ALVAREZ ABOUT PROCEDURE TO USE REMDESIVIR. DR. ALVAREZ INSTRUCTED THIS RN TO HOLD MEDICATION UNTIL SATURDAY WHEN DR. PACE OR DR. EATON WILL BE ON SITE.
[2020-05-22] MEDS ORDERED: CYANOCOBALAMIN 500 MCG TAB PO ONE (12:30)
[2020-05-22 13:22] VITALS: BP 110/70
[2020-05-22 16:58] VITALS: BP 102/74
[2020-05-22] MEDS: TAMSULOSIN HYDROCHLORIDE 0.4 MG CAP PO SCH (18:38)
--- NOTE | 2020-05-22 19:35 | NUR ---
Opening Shift Note Assumed care of patient, resting in bed with breaths even and unlabored. No S/S of distress/SOB or pain noted. Bed is in lowest locked position with bed rails up x2 and call light is within reach of the patient.
[2020-05-22] MEDS: LORazepam 0.5 MG TAB PO PRN (21:55)
[2020-05-22] MEDS: ATORVASTATIN 20 MG TAB PO SCH (21:55)
[2020-05-22 22:00] VITALS: BP 99/68
[2020-05-23 05:00] VITALS: BP 102/57
[2020-05-23] MEDS: FUROSEMIDE 20 MG/2 ML VIAL IV SCH (05:53)
[2020-05-23] MEDS: BUDESONIDE (INHALATION) 180 MCG IH IN SCH ×2 (06:25→21:45)
[2020-05-23] MEDS: ALBUTEROL SULF HFA 90MCG INH 200DOSE IN SCH ×3 (06:25→21:45)
[2020-05-23 07:30] LABS: Basophils # (auto) 0 10 ^3/uL (0-0.2); Basophils % (auto) 0.1 % (0.0-2.0); Eosinophils # (auto) 0 10 ^3/uL (0-0.8); Lymphocytes # (auto) 0.4 10 ^3/uL (0.4-5.4); Mean Corpuscular Hemoglobin 26.7 pg (28.0-32.0); Monocytes # (auto) 0.3 10 ^3/uL (0-1.3); Red Blood Cells 4.29 10^6/uL (4.5-5.90)
--- NOTE | 2020-05-23 07:30 | NUR ---
Opening Shift Note RECEIVED REPORT FROM NOC RN. Assumed care of patient, awake and alert. PATIENT ON OXYGEN AT 2 LPM VIA NASAL CANNULA WITH no S/S of distress/SOB or pain. BED IN LOWEST, LOCKED POSITION WITH SIDERAILS UP x2 AND CALL LIGHT AT BEDSIDE. Instructed on POC and to call for assist PRN, will continue to monitor for changes Q1hr and PRN.
[2020-05-23 07:40] LABS: Hemoglobin 11.5 g/dL (13.5-17.5); Lymphocytes % (auto) 8.3 % (10.0-50.0); Mean Corpuscular Hgb Conc. 32.8 g/dL (32.0-36.0); Mean Corpuscular Volume 81.5 fL (80.0-100.0); Monocytes % (auto) 7.4 % (0.0-12.0); Neutrophils # (auto) 3.7 10 ^3/uL (1.6-8.6); Neutrophils % (auto) 84.2 % (37.0-80.0); Nucleated Red Blood Cells % 0.2 %; Platelet Count (auto) 169 10^3/uL (140-450); Red Cell Distribution Width 16.8 % (11.8-14.3); White Blood Cell 4.4 10^3/uL (4.4-10.8)
[2020-05-23 07:49] LABS: Albumin 2.7 g/dL (3.4-5.0)
[2020-05-23 07:53] LABS: Bilirubin, Total 0.5 mg/dL (0.2-1.0)
[2020-05-23 09:00] VITALS: BP 119/71
[2020-05-23] MEDS: cefTRIAXone 1GM/50ML D5W 50 ML IV SCH (10:16)
[2020-05-23] MEDS: DexAMETHasone SOD PHOS 10MG/1ML VIAL INJ IV SCH (10:17)
[2020-05-23] MEDS: ZINC SULFATE 220mg CAP or TAB PO SCH (10:17)
[2020-05-23] MEDS: AZITHROMYCIN 500MG/ 250ML 250 ML IV SCH (10:17)
[2020-05-23] MEDS: PANTOPRAZOLE 40 MG TAB PO SCH (10:19)
[2020-05-23] MEDS: LOSARTAN POTASSIUM 50 MG TAB PO SCH (10:19)
[2020-05-23] MEDS: APIXABAN 5 MG TAB PO SCH ×2 (10:19→21:31)
[2020-05-23] MEDS: CYANOCOBALAMIN 500 MCG TAB PO SCH (10:20)
[2020-05-23] MEDS: CHOLECALCIFEROL (VITD3) 2,000 UNIT CAP PO SCH (10:20)
[2020-05-23] MEDS: ASCORBIC ACID 1,000 MG TAB PO SCH (10:20)
--- NOTE | 2020-05-23 11:57 | NUR ---
ss consult Per consult advanced directive. Patient is in the Covid unit. Gregorio FRANCIS will provide patient with advanced directive. Addendum: 05/23/20 at 1158 by Aniya FORTUNE Amended: Links added.
[2020-05-23 13:00] VITALS: BP 115/70
[2020-05-23] MEDS ORDERED: MORPHINE SULF INJ 2 MG/ML SYRINGE 1ML IV PRN (14:00)
[2020-05-23] MEDS ORDERED: ACETAMINOPHEN 325 MG TAB PO PRN (14:15)
--- NOTE | 2020-05-23 16:22 | NUR ---
1615 05/23/20 - Faxed to [facility] face sheet, order to transfer to [facility] facility, H/P, labs, meds pending review, and bed availability.
--- NOTE | 2020-05-23 16:35 | NUR ---
1635 05/23/20 - Faxed to [facility] face sheet, order for home oxygen 2L via [place] continuous COVID-19 pneumonia, and order for resume HHC on discharge, H/P, labs, meds. Pending review and authorization.
[2020-05-23 16:55] VITALS: BP 107/67
[2020-05-23] MEDS: TAMSULOSIN HYDROCHLORIDE 0.4 MG CAP PO SCH (18:12)
--- NOTE | 2020-05-23 19:30 | NUR ---
Opening Shift Note Assumed care of patient, awake and alert. No S/S of distress/SOB or pain. Todd hanging below bed, draining to gravity. Instructed in Equatorial Guinean on POC and to call for assist PRN, will continue to monitor for changes Q1hr and PRN.
[2020-05-23 20:00] VITALS: BP 122/78
[2020-05-23] MEDS: ATORVASTATIN 20 MG TAB PO SCH (21:31)
[2020-05-23] MEDS: LORazepam 0.5 MG TAB PO PRN (21:31)
--- NOTE | 2020-05-23 21:42 | NUR ---
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 PT ASSURED I WILL COMMUNICATE, TITO NG AT BEDSIDE AND IS AWARE.
[2020-05-23 21:57] VITALS: BP 122/78
[2020-05-24 05:00] VITALS: BP 111/67
[2020-05-24] MEDS: ALBUTEROL SULF HFA 90MCG INH 200DOSE IN SCH ×4 (08:05→22:08)
[2020-05-24] MEDS: BUDESONIDE (INHALATION) 180 MCG IH IN SCH ×3 (08:06→22:08)
[2020-05-24 08:39] VITALS: BP 107/63
[2020-05-24] MEDS: AZITHROMYCIN 500MG/ 250ML 250 ML IV SCH (09:08)
[2020-05-24] MEDS: cefTRIAXone 1GM/50ML D5W 50 ML IV SCH (09:08)
[2020-05-24] MEDS: LOSARTAN POTASSIUM 50 MG TAB PO SCH (09:10)
[2020-05-24] MEDS: CHOLECALCIFEROL (VITD3) 2,000 UNIT CAP PO SCH (09:10)
[2020-05-24] MEDS: PANTOPRAZOLE 40 MG TAB PO SCH (09:11)
[2020-05-24] MEDS: CYANOCOBALAMIN 500 MCG TAB PO SCH (09:11)
[2020-05-24] MEDS: ZINC SULFATE 220mg CAP or TAB PO SCH (09:11)
[2020-05-24] MEDS: DexAMETHasone SOD PHOS 10MG/1ML VIAL INJ IV SCH (09:11)
[2020-05-24] MEDS: ASCORBIC ACID 1,000 MG TAB PO SCH (09:11)
[2020-05-24] MEDS: APIXABAN 5 MG TAB PO SCH ×2 (10:00→21:50)
[2020-05-24] MEDS ORDERED: FUROSEMIDE 20 MG/2 ML VIAL IV SCH (10:00)
--- NOTE | 2020-05-24 11:23 | NUR ---
Est energy needs 4850-1192 kcal (20-23 kcal/kg BW 76.5kg) est protein needs 61-77g (0.8-1g/kg BW 76.5kg) Will reassess prn. Addendum: 05/24/20 at [address] Amended: Links added.
--- NOTE | 2020-05-24 11:44 | NUR ---
1130 05/24/20 - Contacted [facility] at [phone], regarding status of pending orders , transfer to a [facility] facility and status of home oxygen with resumption of HHC. Spoke with cryptographic vulnerability analyst Luisana who stated the assigned manager social for this patient today is Adina. I provided Luisana with by call back info. Luisana stated that Adina would be calling me back with updates on pending orders.
[2020-05-24 13:00] VITALS: BP 108/64
[2020-05-24] MEDS ORDERED: AMOX500C2 PO ×2 (13:18)
[2020-05-24] MEDS ORDERED: ZINC220T6 PO ×2 (13:18)
[2020-05-24] MEDS ORDERED: LEVO500T21 PO ×2 (13:18)
[2020-05-24] MEDS ORDERED: APIX5TAB PO ×2 (13:18)
[2020-05-24] MEDS ORDERED: ASCO10003 PO ×2 (13:18)
[2020-05-24] MEDS ORDERED: METH4PAK PO ×2 (13:18)
[2020-05-24] MEDS: LORazepam 0.5 MG TAB PO PRN ×2 (14:18→21:53)
--- NOTE | 2020-05-24 15:54 | NUR ---
Patient to go home with sarkar and leg bag and follow up with [facility] PCP per Dr. Capone
--- NOTE | 2020-05-24 16:15 | NUR ---
0500 05/24/20 faxed to [facility] at [phone], face sheet, orders for front wheeled walker, home oxygen, resume HHC. Pending review and delivery of DME.
--- NOTE | 2020-05-24 16:55 | NUR ---
Patient given discharge paperwork and all instructions were given in Kazakh. taught patient how to use leg bag and that he must call tomorrow and schedule follow up with [facility] physician.
--- NOTE | 2020-05-24 16:57 | NUR ---
Tele box sent to ICU
[2020-05-24 17:00] VITALS: BP 126/91
[2020-05-24] MEDS: TAMSULOSIN HYDROCHLORIDE 0.4 MG CAP PO SCH (17:56)
--- NOTE | 2020-05-24 19:20 | NUR ---
Opening Shift Note Assumed care of patient, awake and alert. No S/S of distress/SOB or pain. Instructed on POC and to call for assist PRN, patient aware of need for oxygen. Patient stated "I cant drive home if its get dark". Will continue to monitor for changes Q1hr and PRN.
[2020-05-24 20:00] VITALS: BP 96/49
--- NOTE | 2020-05-24 21:25 | NUR ---
Oxygen not deliver Oxygen not deliver, patient stated he wants to stay the night.
[2020-05-24] MEDS: ATORVASTATIN 20 MG TAB PO SCH (21:50)
[2020-05-24 22:00] VITALS: BP 96/49
--- NOTE | 2020-05-24 22:08 | NUR ---
Respiratory note: PT SEEN FOR SCHEDULED MDI TREATMENT. MEDICATION NOT IN THE ROOM. UNABLE TO GIVE MED AT THIS TIME. NO RESPIRATORY DISTRESS NOTED. HR 67 RR 18 SP02 94% ON 2L NASAL CANNULA.
[2020-05-25 01:13] VITALS: BP 96/49
[2020-05-25] MEDS ORDERED: ACETAMINOPHEN 500 MG TAB PO PRN (02:00)
[2020-05-25] MEDS ORDERED: ONDANSETRON HCL 4 MG/2 ML VIAL IV PRN (02:00)
[2020-05-25] MEDS ORDERED: MORPHINE SULF INJ 2 MG/ML SYRINGE 1ML IV PRN ×2 (02:15)
[2020-05-25] MEDS ORDERED: LORazepam 0.5 MG TAB PO PRN (02:15)
[2020-05-25] MEDS ORDERED: hydrALAZINE HCL 20 MG/ML VL IV PRN (02:15)
[2020-05-25] MEDS ORDERED: ACETAMINOPHEN 325 MG TAB PO PRN (02:15)
[2020-05-25] MEDS ORDERED: ALUM & MAG HYDROX-SIMETH LIQ(MAALOX) 30 ML PO PRN (02:15)
[2020-05-25] MEDS ORDERED: HYDROcodone-ACET 5/325MG TAB PO PRN (02:15)
[2020-05-25] MEDS ORDERED: NITROGLYCERIN 0.4 MG SL TAB SL PRN (02:15)
[2020-05-25] MEDS ORDERED: DOCUSATE SOD 100 MG CAP PO PRN (02:15)
[2020-05-25 05:00] VITALS: BP 118/56
[2020-05-25] MEDS: ALBUTEROL SULF HFA 90MCG INH 200DOSE IN SCH ×2 (06:21→13:44)
--- NOTE | 2020-05-25 06:21 | NUR ---
Respiratory note: FOUND MDI'S IN SIDE TABLE DRAWER. TX'S GIVEN
[2020-05-25 08:47] VITALS: BP 132/94
--- NOTE | 2020-05-25 08:57 | NUR ---
Assessment Patient is an 85-year old who is alert and oriented. Patient primary language is Wolof. Prior to admission patient lived home with a roommate and was independent. Patient informed me [place] [id number] [address] [address] Per patient he will return home to his previous living arrangements. Patients PCP is Dr. Zamora at the [facility]. Patient stated that he gets 750.00 from [employer] and pays 450.00 for rent. Patient feel safe returning home on discharge. Patient has a social service order for a walker and home oxygen that will be satisfied by our case management along with [place] supervisor case loading. Informed Patient he has a right to participate in all discharge planning. Patient verbalized understanding discharge plan. Addendum: 05/25/20 at 0859 by WILMER VINCENT Amended: Links added.
[2020-05-25] MEDS ORDERED: cefTRIAXone 1GM/50ML D5W 50 ML IV SCH (09:00)
[2020-05-25] MEDS ORDERED: FUROSEMIDE 20 MG/2 ML VIAL IV SCH (10:00)
[2020-05-25] MEDS ORDERED: CYANOCOBALAMIN 500 MCG TAB PO SCH (10:00)
[2020-05-25] MEDS ORDERED: ZINC SULFATE 220mg CAP or TAB PO SCH (10:00)
[2020-05-25] MEDS ORDERED: CHOLECALCIFEROL (VITD3) 2,000 UNIT CAP PO SCH (10:00)
[2020-05-25] MEDS ORDERED: APIXABAN 5 MG TAB PO SCH (10:00)
[2020-05-25] MEDS ORDERED: PANTOPRAZOLE 40 MG TAB PO SCH (10:00)
[2020-05-25] MEDS ORDERED: LOSARTAN POTASSIUM 50 MG TAB PO SCH (10:00)
[2020-05-25] MEDS ORDERED: AZITHROMYCIN 500MG/ 250ML 250 ML IV SCH (10:00)
[2020-05-25] MEDS ORDERED: ASCORBIC ACID 1,000 MG TAB PO SCH (10:00)
[2020-05-25] MEDS ORDERED: DexAMETHasone SOD PHOS 10MG/1ML VIAL INJ IV SCH (10:00)
[2020-05-25] MEDS ORDERED: BUDESONIDE (INHALATION) 180 MCG IH IN SCH (10:00)
[2020-05-25] MEDS ORDERED: AMPICILLIN 250 MG/5ML ORAL SUSP 200ML PO ONE (10:15)
[2020-05-25] MEDS ORDERED: AMOXICILLIN TRIHYDRATE 250 MG CAP PO ONE (10:15)
[2020-05-25] MEDS ORDERED: levoFLOXacin 500 MG TAB PO ONE (10:15)
--- NOTE | 2020-05-25 10:26 | NUR ---
0946 05/25/20 - Contacted [facility] at [phone] requesting update on delivery of DME. Spoke with computer forensics analyst Luisana who stated both the home oxygen and front wheel walker was processed yesterday and are scheduled for delivery today between the hours of 9544-9636. I also faxed to [facility] at [phone] update on patient's current address. I informed nurse caring for patient of information stated above.
[2020-05-25 12:56] VITALS: BP 124/72
--- NOTE | 2020-05-25 14:22 | NUR ---
Discharge instructions given as ordered. Encourage to follow up with PMD as instructed. All questions and concerns addressed. Patient verbalized understanding. Medication reconciliation form completed and copy given to patient. IV removed with catheter intact, pressure dressing applied, sarkar catheter intact. Telemetry unit returned to ICU. Patient taken to vehicle via wheelchair with all personal belongings, patient left with oxygen tank and walker from [facility], accompanied by staff. No distress noted at time of departure.
[2020-05-25] MEDS ORDERED: TAMSULOSIN HYDROCHLORIDE 0.4 MG CAP PO SCH (18:00)
[2020-05-25] MEDS ORDERED: ATORVASTATIN 20 MG TAB PO SCH (22:00)
== END 2020-05-25 14:24 | disposition home health service (06) | DRG 871 ==
LOC: ER 08:24 → TELE 08:25 → TELE-EAST 22:48 → UNDODISIN 05-24 19:30
PROVIDERS: ADMIT Hospitalist; ATTEND Internal Medicine
DX: A41.89 Other specified sepsis (principal); I26.99 Other pulmonary embolism without acute cor pulmonale; J96.01 Acute respiratory failure with hypoxia; U07.1 COVID-19; J12.89 Other viral pneumonia; E44.0 Moderate protein-calorie malnutrition; E87.1 Hypo-osmolality and hyponatremia; J44.0 Chronic obstructive pulmonary disease with (acute) lower respiratory infection; N39.0 Urinary tract infection, site not specified; E03.9 Hypothyroidism, unspecified; E78.5 Hyperlipidemia, unspecified; D64.9 Anemia, unspecified; E86.0 Dehydration; F17.200 Nicotine dependence, unspecified, uncomplicated; F32.9 Major depressive disorder, single episode, unspecified; F41.9 Anxiety disorder, unspecified; I10 Essential (primary) hypertension; N40.0 Benign prostatic hyperplasia without lower urinary tract symptoms; Z79.899 Other long term (current) drug therapy; Z79.891 Long term (current) use of opiate analgesic; Z90.49 Acquired absence of other specified parts of digestive tract
CPT/HCPCS: 36415; 71045; 80053; 80061; 80307; 81001; 82728; 83036; 83605; 83615; 83690; 83735; 84132; 84443; 84484; 85025; 85379; 85610; 86141; 87081; 87086; 87088; 87186; 93005; 94640; 97116; 97163; G0378; J0696; J1100; J2405

== ENCOUNTER 2020-05-25 15:58 | Inpatient (IN) | payer OTHER, MEDICAID ==
[~2020-05-25] VITALS: Ht 167.6 cm; Wt 30.9 kg
[~2020-05-25 15:58] MED LIST changes: +AMOX500C2 PO; +APIX5TAB PO; +ASCO10003 PO; +LEVO500T21 PO; -LOSA-39 PO; +METH4PAK PO; -OMEP20TA PO; +ZINC220T6 PO
[2020-05-25 17:48] LABS: Basophils # (auto) 0 10 ^3/uL (0-0.2); Eosinophils # (auto) 0 10 ^3/uL (0-0.8); Hemoglobin 11.1 g/dL (13.5-17.5); Lymphocytes # (auto) 0.2 10 ^3/uL (0.4-5.4); Monocytes # (auto) 0.2 10 ^3/uL (0-1.3); Neutrophils # (auto) 4.8 10 ^3/uL (1.6-8.6); White Blood Cell 5.2 10^3/uL (4.4-10.8)
[2020-05-25 17:49] LABS: Basophils % (auto) 0.4 % (0.0-2.0); Hematocrit 33.8 % (41.0-53.0); Lymphocytes % (auto) 3.8 % (10.0-50.0); Mean Corpuscular Hemoglobin 26.6 pg (28.0-32.0); Mean Corpuscular Hgb Conc. 32.9 g/dL (32.0-36.0); Mean Corpuscular Volume 80.8 fL (80.0-100.0); Neutrophils % (auto) 91.8 % (37.0-80.0); Platelet Count (auto) 221 10^3/uL (140-450); Red Blood Cells 4.18 10^6/uL (4.5-5.90)
[2020-05-25 18:03] LABS: Albumin 2.8 g/dL (3.4-5.0); BUN/Creatinine Ratio 14.4; Calcium 8.7 mg/dL (8.5-10.1); Potassium 4.2 mmol/L (3.5-5.1)
[2020-05-25 18:06] LABS: Bilirubin, Total 0.4 mg/dL (0.2-1.0); Total Protein 7.1 g/dL (6.4-8.2)
[2020-05-25] MEDS ORDERED: DexAMETHasone SOD PHOS 10MG/1ML VIAL INJ IV ONE (19:45)
[2020-05-25] MEDS ORDERED: DOXYCYCLINE 100MG/250ML 250 ML IV ONE (19:45)
[2020-05-25 22:26] LABS: Urine Amorphous Crystal FEW /hpf (None Seen); Urine Bacteria FEW /hpf (None Seen); Urine Blood Negative /uL (Negative); Urine Specific Gravity 1.008 (1.001-1.035); Urine WBC 1 /hpf (0 - 3)
[2020-05-26] MEDS ORDERED: TEMAZEPAM 15 MG CAP PO PRN (00:45)
[2020-05-26] MEDS ORDERED: MORPHINE SULF INJ 2 MG/ML SYRINGE 1ML IV PRN (00:45)
[2020-05-26] MEDS ORDERED: NITROGLYCERIN 0.4 MG SL TAB SL PRN (00:45)
[2020-05-26] MEDS ORDERED: ONDANSETRON HCL 4 MG/2 ML VIAL IV PRN (00:45)
[2020-05-26 01:09] LABS: Magnesium 2.4 mg/dL (1.6-2.6)
[2020-05-26 01:18] LABS: CRP High Sensitivity 1.41 mg/dL (< 0.3)
[2020-05-26 02:37] LABS: INR 1.03 (0.9-1.15); Partial Thromboplastin Time 26.8 sec (23.0-31.2)
[2020-05-26 03:40] VITALS: BP 138/69
[2020-05-26] MEDS: ALBUTEROL SULF HFA 90MCG INH 200DOSE IN SCH ×3 (07:53→22:00)
[2020-05-26] MEDS: ACETAMINOPHEN 325 MG TAB PO PRN ×2 (09:44→23:44)
[2020-05-26] MEDS ORDERED: ENOXAPARIN SOD 40 MG/0.4 ML SYRINGE SC SCH (10:00)
[2020-05-26] MEDS ORDERED: HCTZ 25 MG TAB PO SCH (10:00)
[2020-05-26] MEDS ORDERED: DOXYCYCLINE 100MG/250ML 250 ML IV SCH (10:00)
[2020-05-26] MEDS ORDERED: FAMOTIDINE 20 MG TAB PO SCH (10:00)
[2020-05-26] MEDS: DexAMETHasone SOD PHOS 10MG/1ML VIAL INJ IV SCH (10:30)
[2020-05-26] MEDS: APIXABAN 5 MG TAB PO SCH ×2 (10:31→22:00)
[2020-05-26] MEDS: ZINC SULFATE 220mg CAP or TAB PO SCH (10:31)
[2020-05-26] MEDS: LOSARTAN POTASSIUM 25 MG TAB PO SCH (10:31)
[2020-05-26] MEDS: ASCORBIC ACID 1,000 MG TAB PO SCH (10:33)
[2020-05-26] MEDS: CHOLECALCIFEROL (VITD3) 2,000 UNIT CAP PO SCH (10:33)
[2020-05-26] MEDS: amLODIPine BESYLATE 5 MG TAB PO SCH (10:33)
[2020-05-26] MEDS: PANTOPRAZOLE 40 MG TAB PO SCH (10:33)
--- NOTE | 2020-05-26 10:50 | NUR ---
05/26/20 1050 Faxed to [facility] face sheet, CXR, progress notes, labs, med list, H&P requesting authorization for 05/27/20, Will scan into [employer].
[2020-05-26] MEDS ORDERED: FUROSEMIDE 20 MG/2 ML VIAL IV ONE (14:00)
[2020-05-26] MEDS ORDERED: levoFLOXacin 500 MG TAB PO ONE (14:00)
--- NOTE | 2020-05-26 15:25 | NUR ---
05/26/20 1525 Called [facility] and spoke with Gaby land degradation analyst stated they received the clinical packet and gave authorization for in patient stay for 05/26/20 @ 1000 am #[id number] and stated they are still reviewing the chart.
[2020-05-26] MEDS: TAMSULOSIN HYDROCHLORIDE 0.4 MG CAP PO SCH (15:48)
[2020-05-26 20:20] VITALS: BP 122/86
--- NOTE | 2020-05-26 20:20 | NUR ---
Telemetry admit from [facility] admitted to Telemetry unit after SBAR received. Patient oriented to Bill Lainez, primary RN, unit, room, bed, and unit policies regarding patient care and visiting hours. Patient now on continuous telemetry monitoring, tele box #1 and telemetry reading on arrival to unit is SR 74. Patient placed on bedside oxygen, weighed by bedscale and encouraged to call if they need something. All questions and concerns addressed, patient verbalized understanding.
[2020-05-26 22:00] VITALS: BP 122/86
[2020-05-26] MEDS: AMOXICILLIN TRIHYDRATE 250 MG CAP PO SCH (22:00)
[2020-05-26] MEDS: BUDESONIDE (INHALATION) 180 MCG IH IN SCH (22:00)
--- NOTE | 2020-05-26 23:40 | NUR ---
PAIN ASSESSMENT The patient c/o a headache which he 12/14 and is requesting pain medication. Will treat with PRN Acetaminophen.
[2020-05-27 05:02] VITALS: BP 100/57
[2020-05-27] MEDS: ALBUTEROL SULF HFA 90MCG INH 200DOSE IN SCH ×2 (07:45→14:03)
[2020-05-27] MEDS: BUDESONIDE (INHALATION) 180 MCG IH IN SCH (07:49)
[2020-05-27 08:28] LABS: Basophils # (auto) 0 10 ^3/uL (0-0.2); Eosinophils # (auto) 0 10 ^3/uL (0-0.8); Mean Corpuscular Volume 80.8 fL (80.0-100.0); Monocytes # (auto) 0.7 10 ^3/uL (0-1.3); Neutrophils # (auto) 6.6 10 ^3/uL (1.6-8.6); Red Cell Distribution Width 17.2 % (11.8-14.3); White Blood Cell 7.7 10^3/uL (4.4-10.8)
[2020-05-27 08:30] LABS: Basophils % (auto) 0.2 % (0.0-2.0); Hematocrit 36.1 % (41.0-53.0); Lymphocytes # (auto) 0.4 10 ^3/uL (0.4-5.4); Mean Corpuscular Hemoglobin 26.8 pg (28.0-32.0); Mean Corpuscular Hgb Conc. 33.2 g/dL (32.0-36.0); Neutrophils % (auto) 85.8 % (37.0-80.0); Platelet Count (auto) 268 10^3/uL (140-450); Red Blood Cells 4.47 10^6/uL (4.5-5.90)
[2020-05-27 08:53] LABS: Calcium 8.6 mg/dL (8.5-10.1); Potassium 3.8 mmol/L (3.5-5.1)
[2020-05-27 08:58] LABS: BUN/Creatinine Ratio 17.9; Bilirubin, Total 0.5 mg/dL (0.2-1.0); Total Protein 7.3 g/dL (6.4-8.2)
[2020-05-27 09:00] VITALS: BP 135/78
[2020-05-27] MEDS ORDERED: levoFLOXacin 500 MG TAB PO SCH (10:00)
[2020-05-27] MEDS ORDERED: FAMOTIDINE 20 MG TAB PO SCH (10:00)
[2020-05-27] MEDS ORDERED: FUROSEMIDE 20 MG/2 ML VIAL IV SCH (10:00)
[2020-05-27] MEDS ORDERED: POTASSIUM CHL 10 Meq TABLET PO SCH (10:00)
[2020-05-27] MEDS: DexAMETHasone SOD PHOS 10MG/1ML VIAL INJ IV SCH (10:37)
[2020-05-27] MEDS: AMOXICILLIN TRIHYDRATE 250 MG CAP PO SCH (10:38)
[2020-05-27] MEDS: ZINC SULFATE 220mg CAP or TAB PO SCH (10:38)
[2020-05-27] MEDS: LOSARTAN POTASSIUM 25 MG TAB PO SCH (10:38)
[2020-05-27] MEDS: APIXABAN 5 MG TAB PO SCH (10:38)
[2020-05-27] MEDS: PANTOPRAZOLE 40 MG TAB PO SCH (10:39)
[2020-05-27] MEDS: amLODIPine BESYLATE 5 MG TAB PO SCH (10:39)
[2020-05-27] MEDS: CHOLECALCIFEROL (VITD3) 2,000 UNIT CAP PO SCH (10:40)
[2020-05-27] MEDS: ASCORBIC ACID 1,000 MG TAB PO SCH (10:40)
[2020-05-27] MEDS ORDERED: POTA1TAB61 PO (11:45)
[2020-05-27] MEDS ORDERED: FURO1TAB33 PO (11:45)
--- NOTE | 2020-05-27 12:20 | NUR ---
05/27/20 1216 Faxed to [facility] face sheet, Home Health request, discharge summary, progress notes
[2020-05-27 13:00] VITALS: BP 135/78
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
--- NOTE | 2020-05-27 13:46 | NUR ---
Spoke with Ana MEDINA Lead Front End Developer of the Out[facility] at [facility] and stated they will deliver a walker and a portable O2 tank [facility] the [facility], so that he can go home. We will give the patient a taxi voucher so that he can go home. A concentrator for the O2 has been sent to his home, per Ana Medina. Addendum: 05/27/20 at 1707 by Sandy Aaron RN, CM o2 and walker will be delivered by [facility]
--- NOTE | 2020-05-27 13:50 | NUR ---
Called the liquid waste treatment plant operator department and explain to them the situation with the O2 and the walker being in the car and they gave me the information as to where the car is being stored. Called the facility and made them aware that the O2 is in the car, but he stated they don't look in the cars for private property and he would have to bring his identification and pay the fees to get the car back. Gave the storage information for the car to the social and human services assistant Sheila to give to the patient.
--- NOTE | 2020-05-27 15:51 | NUR ---
Assessment Patient is an 85-year old who is alert and oriented. Patient primary language is Thai. Prior to admission patient lived home with a roommate and was independent. Patient informed me [place] [address] [address] [address] Per patient he will return home to his previous living arrangements. Patients PCP is Dr. Zamora at the [facility]. Patient stated that he gets 750.00 from [employer] and pays 450.00 for rent. Patient feel safe returning home on discharge. Patient was offered resource for caregiver. Patient refused. Patient stated he does not need any extra assistance at home. Patient has a social service order for home health and transportation home that will be satisfied by our case management along with [place] case maker. Informed Patient he has a right to participate in all discharge planning. Patient verbalized understanding discharge plan. Per CM Jayda Moreno will provide a walker and home oxygen to patient that will be deliver to front lobby. Advised TITO Alicia patient car is at the [employer] and patient will have to pay 472dlls to get it out.
--- NOTE | 2020-05-27 16:48 | NUR ---
Faxed request to [facility] for transportation for the patient to go home, # [phone]
--- NOTE | 2020-05-27 17:03 | NUR ---
Spoke with [facility] and stated the the patient will be picked up at [address] by [employer], will go by justin due to Covid, transport request
[2020-05-27] MEDS: TAMSULOSIN HYDROCHLORIDE 0.4 MG CAP PO SCH (18:00)
[2020-05-27 20:10] VITALS: BP 144/89
--- NOTE | 2020-05-27 21:14 | NUR ---
PATIENT HAS BEEN DISCHARGED FROM [facility].
== END 2020-05-27 21:20 | disposition home or self-care (01) | DRG 177 ==
LOC: EDBD 15:58 → ER 15:58 → TELE 15:59 → TELE-E-ADS 05-26 20:13
PROVIDERS: ADMIT Nurse Practitioner; ATTEND Internal Medicine
DX: U07.1 COVID-19 (principal); J12.89 Other viral pneumonia; J96.01 Acute respiratory failure with hypoxia; J44.0 Chronic obstructive pulmonary disease with (acute) lower respiratory infection; E44.1 Mild protein-calorie malnutrition; N39.0 Urinary tract infection, site not specified; I10 Essential (primary) hypertension; F32.9 Major depressive disorder, single episode, unspecified; F41.9 Anxiety disorder, unspecified; E78.5 Hyperlipidemia, unspecified; N40.0 Benign prostatic hyperplasia without lower urinary tract symptoms; Z86.711 Personal history of pulmonary embolism
CPT/HCPCS: 36415; 70450; 71045; 80053; 81001; 82728; 82962; 83605; 83615; 83735; 83880; 84443; 84484; 85025; 85379; 85610; 85730; 86141; 87040; 87086; 87088; 87186; 87426; 93005; 94640; 99291; G0378; J1100; J3490